=== PATIENT | male | born 1925 | race Caucasian/White ===

== ENCOUNTER 2016-06-07 14:00 | Emergency (ER) | payer MEDICARE, BC ==
[~2016-06-07] VITALS: Ht 167.6 cm; Wt 74.0 kg
[~2016-06-07 14:00] MED LIST: ASPI1TAB69 PO; FURO1TAB62 PO; ISOS30TA3 PO; LEXA20TA PO; LOSA100T PO; METO25TA3 PO; NEXI40CA PO; POTA10CA PO; RIVA3CAP PO; SIMV40TA PO; TAMS0.4C4 PO
[2016-06-07 14:08] VITALS: BP 122/60; PULSE 60; RESP 16; TEMP 97.4; O2SAT 93
== END 2016-06-07 17:33 | disposition left against medical advice (07) ==
LOC: PHED 14:00
DX: R42 Dizziness and giddiness (principal)
CPT/HCPCS: 99281